=== PATIENT | female | born 1980 | race Caucasian/White ===

== ENCOUNTER → 2020-06-16 12:41 | Outpatient (CLI) | payer OTHER, SELFPAY ==
--- NOTE | 2020-06-16 12:41 | DI.RAD.S_ITS ---
PROCEDURE: HL HYSTEROSAPINGOGRAPHY INDICATIONS: Infertility COMPARISON: None. FINDINGS: Patient had a documented negative test prior to the study. Following speculum insertion, a balloon-tip catheter was inserted into the cervical canal, and secured by inflating the balloon. Contrast was then injected into the endometrial canal. Uterus: The visualized portions of the uterine cavity appears normal in size and morphology, without synechiae or masses. Fallopian tubes: There is appropriate spill from the left fallopian tube. Right fallopian tube is not well visualized. IMPRESSION: 1. Patent left fallopian tube. 2. Nonvisualized right fallopian tube. Dictated by: Teo Larios M.D. on 06/16/2020 at 16:03 Approved by: Teo Larios M.D. on 06/16/2020 at 16:03
--- NOTE | 2020-06-23 09:52 | P.PCN_ITS ---
Procedures Date/Time Date of procedure: 06/16/20 Time of procedure: 13:30 General Procedure description: Hysterosalpingogram After informed consent was obtained, the patient was placed on an overturned bedpan on the fluoroscopy table. A bivalve speculum was placed into the vagina. The cervix was cleaned x3 with Betadine. A single-tooth tenaculum was placed on the anterior lip of the cervix. The hysterosalpingogram catheter passed e asily into the endometrial cavity. 3 cc of air were put in the balloon. The bivalve speculum was removed from the vagina. Approximately 18 cc of Optiview 300 were injected under direct fluoroscopic examination. The contours of the uterus were normal. There was spill from both tubes. The single-tooth tenaculum was removed from the anterior lip of the cervix. The hysterosalpingogram catheter balloon was deflated and it was removed from the uterus. Complications: none
== END ==
PROVIDERS: PCP Family Medicine Geriatric Medicine; Referring Provider Obstetrics & Gynecology; Visit Provider Obstetrics & Gynecology
DX: N97.9 Female infertility, unspecified (principal); N80.9 Endometriosis, unspecified
CPT/HCPCS: 58340; 74740